=== PATIENT | female | born 1945 | race Caucasian/White ===

== ENCOUNTER → 2018-06-19 | Outpatient (CLI) | payer MEDICARE, BC ==
--- NOTE | 2018-06-19 12:11 | PCVCIMAG ---
APPROVED REPORT Study performed: 06/19/2018 09:48:21 Exam: Stress Echocardiogram Indication: Hypertension, Chest pain Patient Location: Echo lab Stress Nurse: Devorah Horne RN Room #: 2 Status: routine Ht: 5 ft 4 in HR: 77 bpm BP: 124/72 mmHg Rhythm: NSR Medical History Medical History: Hx breast Ca Cardiac Risk Factors: HTN Previous Cardiac Procedures: none Pretest Chest Pain Characteristics: none Exercise History: Physically active Procedure The patient underwent an Exercise Stress Test using the Edward Protocol. Blood pressure, heart rate, and EKG were monitored. An Echocardiogram was performed by clean room technician in four stages in quad fashion. At peak stress, four selected images were obtained and placed side by side with resting images for comparison. Stress Test Details Stress Test: Exercise stress testing was performed using a Edward protocol. HR Resting HR: 77 bpmMax Heart Rate (APMHR): 146 bpm Max HR Achieved: 139 bpmTarget HR (85% APMHR): 124 bpm % of APMHR: 95 Recovery HR: 76 bpm HR response to stress: Normal HR response to stress BP Resting BP: 124/72 mmHg Max BP: 140/74 mmHg Recovery BP: 114/60 mmHg BP response to stress: Normal blood pressure response to stress. ECG Resting ECG: Sinus Rhythm Stress ECG: Sinus Rhythm ST Change: Non-ischemic Maximum ST Deviation: 0 mm Arrhythmia: none Recovery ECG: Sinus Rhythm Recovery ST Change: Non-ischemic Recovery ST Deviation: 0 mm Recovery Arrhythmia: None Clinical Reason for Termination: Maximal effort Stress Symptoms: Leg Fatigue Exercise duration: 7 min 10 sec Highest Stage Achieved: Stage 3: 3.4 mph at 14% grade. Exercise capacity: 10.1 METs Overall Exercise Capacity for Age: Average Scale: Active Angina Score: None No complications. Stress ECG Conclusion The resting heart rate of 77 bpm tello to a maximum heart rate of 139 bpm. This value represent 95% of the maximal, age-predicted heart rate. The resting blood pressure of 124/72 mmHg, tello to a maximum blood pressure of 140/74 mmHg. The exercise test was stopped due to fatigue. Bah Treadmill Score is 7.0 which is Low risk. Pre-Stress Echo The resting Echocardiogram showed normal left ventricular contractility with an estimated Ejection Fraction of about 55-60%. Normal wall motion in all segments on baseline images. Post-Stress Echo The stress Echocardiogram showed normal left ventricular contractility with an estimated Ejection Fraction of about 65-70%. Normal augmentation of wall motion in all segments on post stress images. Clinical No clinical or ECG evidence for ischemia. Conclusion Clinical Response: Non-ischemic Exercise Capacity: Average Stress ECG Response: Non-ischemic Stress Echo Images: Non-ischemic No echocardiographic evidence for exercise induced ischemia. No echocardiographic evidence for exercise induced ischemia. Normal stress echocardiogram with maximal exercise stress. No prior study available for comparison. <Conclusion> No echocardiographic evidence for exercise induced ischemia. No echocardiographic evidence for exercise induced ischemia. Normal stress echocardiogram with maximal exercise stress.
== END | disposition home or self-care (01) ==
LOC: PCVCIMAG 09:54
PROVIDERS: ATTEND Neuromusculoskeletal Medicine & OMM
DX: I10 Essential (primary) hypertension (principal); R07.89 Other chest pain
CPT/HCPCS: 93325; 93351

== ENCOUNTER → 2019-03-17 | Outpatient (CLI) | payer MEDICARE, BC | END | disposition home or self-care (01) | LOC: PCVCCLINIC 13:00 | PROVIDERS: ATTEND Internal Medicine Cardiovascular Disease | DX: I48.0 Paroxysmal atrial fibrillation (principal); I10 Essential (primary) hypertension; E78.5 Hyperlipidemia, unspecified; Z82.49 Family history of ischemic heart disease and other diseases of the circulatory system; Z88.8 Allergy status to other drugs, medicaments and biological substances; Z79.899 Other long term (current) drug therapy | CPT/HCPCS: 36415; 80061; 93005; G0463 ==